=== PATIENT | male | born 1995 | race Caucasian/White ===

== ENCOUNTER 2023-10-21 10:13 | Emergency (ER) | payer OTHER ==
[~2023-10-21] VITALS: Ht 175.3 cm; Wt 73.5 kg
[2023-10-21] MEDS ORDERED: Fluorescein Sod 1MG Opth Strips LEFTEYE ONE (10:30)
[2023-10-21] MEDS ORDERED: Tetracaine HCl/Pf 0.5% Opth Soln 4 ml LEFTEYE ONE (10:30)
== END 2023-10-21 11:53 | disposition home or self-care (01) ==
LOC: ER 10:13
DX: H11.152 Pinguecula, left eye (principal)
CPT/HCPCS: A9270